=== PATIENT | female | born 1940 | race Hispanic/Latino ===

== ENCOUNTER → 2017-10-24 | Day surgery (SDC) | payer MEDICARE ==
[2017-10-16 10:49] LABS: BASOPHILS # (AUTO) 0.1 (0.0-0.1); BASOPHILS % 0.7 % (0.0-1.0); EOSINOPHILS # (AUTO) 0.1 (0.0-0.4); EOSINOPHILS % 0.9 % (0.0-6.0); HEMATOCRIT 39.4 % (34.2-44.1); HEMOGLOBIN 13.2 g/dL (12.0-16.0); MEAN CORPUSCULAR HEMOGLOBIN 29.3 pg (28-32); MEAN CORPUSCULAR HGB CONC 33.5 g/dL (31-35); MEAN CORPUSCULAR VOLUME 87.4 fL (81-99); MONOCYTES # (AUTO) 0.5 (0.2-0.8); MONOCYTES % 7.2 % (4.4-11.3); NEUTROPHILS # (AUTO) 4.9 (2.1-6.9); NEUTROPHILS % 64.9 % (38.7-80.0); PLATELET COUNT 196 x10e3/uL (140-360); RED BLOOD COUNT 4.51 x10e6/uL (3.6-5.1); RED CELL DISTRIBUTION WIDTH 13.4 % (11.7-14.4)
[~2017-10-24] MED LIST: AMITIZA24 MCG PO; CREON DR 6,000 U1 EA PO; FENTANYL CITRATE/PF 100MCG/2 ML INJ ONE; LEVOTHYROXINE137 MCG PO; MAGESTROL PO; OXYBUTYNIN CHLOR5 MG PO; PEPCID20 MG PO; PROPOFOL IV EMULSION 10 MG/ML 50 ML VIAL ONE; Z.0.ELMIRON100 MG PO; Z.0.LEVOXYL25 MCG PO; Z.0.OMEPRAZOLE40 MG PO
== END | disposition home or self-care (01) ==
LOC: EDSTATUS 07:30 → DX 07:44 → OR 12:17
PROVIDERS: ATTEND Internal Medicine Gastroenterology
CPT/HCPCS: 36415; 43239; 85025; 93005

== ENCOUNTER → 2018-04-09 | Outpatient (CLI) | payer MEDICARE, OTHER ==
[~2018-04-09] MED LIST changes: -FENTANYL CITRATE/PF 100MCG/2 ML INJ ONE; +GADOBENATE DIMEGLUMINE 1 ML IV ONE; -PROPOFOL IV EMULSION 10 MG/ML 50 ML VIAL ONE
[2018-04-09 11:27] LABS: BLOOD UREA NITROGEN 14 mg/dL (7-26); BUN/CREATININE RATIO 19 (6-25); CREATININE, SERUM 0.72 mg/dL (0.57-1.11); EST GLOMERULAR FILTRATION RATE > 60 ML/MIN (60-)
--- NOTE | 2018-04-09 15:37 | Diagnostic Imaging Report ---
History: Right side face drooping Comparison studies: None. Technique: Precontrast: Brain: Axial T1, DWI, T2 flair/ IACs: Axial T2 high resolution, axial T1 Postcontrast: Axial T1 brain, axial and coronal T1 centered in the IACs. Intravenous contrast:12 cc of MultiHance . FINDINGS: Posterior Fossa: Brainstem: Few small hyperintensities of the reynold, most likely related to microvascular ischemic changes] Cerebellar Hemispheres: No signal abnormalities . Cerebellopontine angle cisterns: No mass. IACs: Normal nerves VII and VIII. Labyrinths: Grossly normal formation. No abnormal signal intensity or enhancement. Mastoids: No abnormal signal intensity or enhancement. Supratentorial region: Few T2/flair hyperintensities of the periventricular and deep white matter Masses: None. Acute or chronic vascular insults: None. Ventricles: Normal in size. No hydrocephalus. Basal ganglia and thalami: No signal abnormalities. Extracerebral collections: None. IMPRESSION: No acute abnormalities . No facial nerve abnormalities. Minimal chronic microvascular ischemic changes of the white matter. Signed by: DR Rafi Hernandez M.D. on 04/09/2018 3:33 PM
== END ==
LOC: MRI 10:47
PROVIDERS: ATTEND Psychiatry & Neurology Clinical Neurophysiology
DX: G24.5 Blepharospasm (principal); G24.4 Idiopathic orofacial dystonia
CPT/HCPCS: 36415; 70553; 82565; 84520

== ENCOUNTER → 2019-06-08 | Outpatient (CLI) | payer MEDICARE, OTHER ==
[~2019-06-08] MED LIST changes: -GADOBENATE DIMEGLUMINE 1 ML IV ONE
--- NOTE | 2019-06-08 09:18 | Diagnostic Imaging Report ---
Exam: KUB - 2 views Indication: Urinary tract infection Comparison: <None.> Findings: Extensive chondral calcifications. 3 mm radiopaque density overlying the lower pole of the right kidney may represent a renal calculus versus intraluminal bowel content. No other radiographically apparent renal calculi. Degenerative changes of the visualized spine. Nonobstructive bowel gas pattern. No free air. Status post cholecystectomy. Impression: 3 mm radiopaque density overlying the lower pole the right kidney may represent renal calculus versus intraluminal bowel content. Signed by: Neli Harrington MD on 06/08/2019 9:15 AM
--- NOTE | 2019-06-08 10:42 | Diagnostic Imaging Report ---
EXAM: Renal Ultrasound INDICATION: ^[id number] ^[id number] ^UTI COMPARISON: None TECHNIQUE: Transverse and longitudinal images of the kidneys and bladder were obtained. FINDINGS: Right Kidney: Length: 10.6 cm Appearance: Normal echogenicity. Collecting system: No hydronephrosis Stones: None Cyst/Mass: None Left Kidney: Length: 10.6 cm Appearance: Normal echogenicity. Collecting system: Mild hydronephrosis Stones: None Cyst/Mass: None Bladder: No mass or calculi. Bilateral ureteral jets visualized. Prevoid volume estimate of 100 cc. IMPRESSION: Mild left hydronephrosis. No renal calculi. Signed by: Neli Harrington MD on 06/08/2019 10:39 AM
== END ==
LOC: US 08:27
PROVIDERS: ATTEND Urology
DX: N39.0 Urinary tract infection, site not specified (principal); Z87.442 Personal history of urinary calculi
CPT/HCPCS: 74018; 76770

== ENCOUNTER → 2020-08-19 | Outpatient (CLI) | payer MEDICARE, OTHER | LOC: US 09:37 | PROVIDERS: ATTEND Internal Medicine | DX: E78.00 Pure hypercholesterolemia, unspecified (principal) | CPT/HCPCS: 76536 ==

== ENCOUNTER → 2022-03-15 | Outpatient (CLI) | payer MEDICARE, OTHER | LOC: CT 13:14 | PROVIDERS: ATTEND Urology | DX: N20.0 Calculus of kidney (principal) | CPT/HCPCS: 74176 ==

== ENCOUNTER → 2022-07-16 | Outpatient (CLI) | payer MEDICARE, OTHER ==
[~2022-07-16] MED LIST changes: +GADOBENATE DIMEGLUMINE 1 ML IV ONE
[2022-07-16 07:59] LABS: CREATININE, SERUM 0.75 mg/dL (0.57-1.11)
== END ==
LOC: MRI 06:48
PROVIDERS: ATTEND Internal Medicine
DX: R22.42 Localized swelling, mass and lump, left lower limb (principal)
CPT/HCPCS: 36415; 82565; 84520

== ENCOUNTER → 2022-08-30 | Outpatient (CLI) | payer MEDICARE, OTHER ==
[~2022-08-30] MED LIST changes: -GADOBENATE DIMEGLUMINE 1 ML IV ONE
== END ==
LOC: US 09:55
PROVIDERS: ATTEND Urology
DX: N20.0 Calculus of kidney (principal); N39.0 Urinary tract infection, site not specified
CPT/HCPCS: 74018; 76770

== ENCOUNTER → 2022-11-14 | Outpatient (CLI) | payer MEDICARE, OTHER | LOC: CT 07:26 | PROVIDERS: ATTEND Urology | DX: N20.0 Calculus of kidney (principal) | CPT/HCPCS: 74176 ==

== ENCOUNTER → 2023-09-02 | Outpatient (REF) | payer MEDICARE, OTHER | LOC: US 10:26 | PROVIDERS: ATTEND Urology | DX: R31.21 Asymptomatic microscopic hematuria (principal) | CPT/HCPCS: 74018; 76770; 76857 ==

== ENCOUNTER → 2024-03-31 | Outpatient (REF) | payer MEDICARE, OTHER | LOC: CT 12:20 | PROVIDERS: ATTEND Urology | DX: N20.0 Calculus of kidney (principal) | CPT/HCPCS: 74176 ==

== ENCOUNTER → 2025-03-05 | Outpatient (REF) | payer MEDICARE, OTHER | LOC: RAD 13:02 | PROVIDERS: ATTEND Urology | DX: N20.0 Calculus of kidney (principal) | CPT/HCPCS: 74176 ==